=== PATIENT | female | born 1945 | race Caucasian/White ===

== ENCOUNTER 2020-02-07 10:22 | Outpatient (CLI) | payer MEDICARE, BC ==
--- NOTE | 2020-02-07 16:02 | ULT ---
ABDOMINAL ULTRASOUND: Date: 02-07-2020 Comparison: None History: Hepatitis C Technique: Multiplanar grayscale sonographic imaging of the abdomen provided. FINDINGS: Partially visualized abdominal aorta grossly unremarkable. The imaged portions of the IVC and pancrea s appear within normal limits as well. No discrete focal liver lesion or intrahepatic biliary dilatation. The hepatic parenchyma is somewhat echogenic, suggesting a degree of hepatocellular disease. 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 No gallbladder wall thickening or pericholecystic fluid. No gallstones are noted. Common bile d uct measures 5 mm, within normal limits. The right kidney measures 10.5 cm in craniocaudal dimension and demonstrates no stone, hydronephrosis , or mass. The left kidney measures 11.3 cm in craniocaudal dimension. There is a lower pole left renal cyst kirsten suring 3.3 x 4.1 x 3.2 cm. Spleen measures up to 10.2 cm, within normal limits. IMPRESSION: No acute findings. Incidental findings as documented above. POS: [facility]
== END 2020-02-07 10:23 | disposition home or self-care (01) ==
LOC: SCSULT 10:22
PROVIDERS: ATTEND Internal Medicine
DX: B18.2 Chronic viral hepatitis C (principal)
CPT/HCPCS: 36415; 80053; 85025; 85610; 86706; 86708; 87340; 87389; 87522; 87902; 93975